=== PATIENT | female | born 1990 | race Hispanic/Latino ===

== ENCOUNTER 2017-06-26 13:35 | Emergency (ER) | payer OTHER ==
[~2017-06-26] VITALS: Ht 152.4 cm; Wt 74.8 kg
--- NOTE | 2017-06-26 15:27 | Diagnostic Imaging Report ---
EXAMINATION: CT of the face HISTORY: Facial trauma, left jaw pain, evaluate for fracture COMPARISON: None available TECHNIQUE: Multidetector helical axial images were acquired through the face without contrast and were reconstructed in bone and soft tissue algorithms. Images were viewed in multiplanar format. FINDINGS: Bones: Acute comminuted and displaced fracture of the left posterior body/angle of the mandible. Nondisplaced complete right parasymphyseal fracture extending to the alveolar ridge in between the right central and lateral incisors. Facial soft tissues: Left greater than right premandibular soft tissue swelling, mild right premaxillary soft tissue swelling. Prominence of the palatine tonsils, likely reactive and within normal limits for age.. Paranasal sinuses and drainage pathways: The frontal, ethmoidal, sphenoid and maxillary sinuses are clear. The ostiomeatal units, fronto-nasal and spheno-ethmoidal recesses are clear. Orbits contents: Unremarkable. Nasal septum: Midline. Anatomic variations: No significant anatomic variations. Dentition: No acute abnormality of the visualized teeth. IMPRESSION: 1. Acute comminuted and displaced left posterior body/angle of the mandible fracture. 2. Acute nondisplaced right parasymphyseal fracture. 3. Bilateral premandibular and right premaxillary soft tissue swelling. Signed by: Dr. Patricia Calero M.D. on 06/26/2017 3:24 PM
[2017-06-26] MEDS ORDERED: HYDROCODONE/APAP 10MG-325MG TAB PO ONE (17:30)
== END 2017-06-26 18:54 | disposition home or self-care (01) ==
LOC: ER 13:35
DX: S02.66XB Fracture of symphysis of mandible, initial encounter for open fracture (principal); S02.652B Fracture of angle of left mandible, initial encounter for open fracture; W50.0XXA Accidental hit or strike by another person, initial encounter; Y04.0XXA Assault by unarmed brawl or fight, initial encounter; Y92.008 Other place in unspecified non-institutional (private) residence as the place of occurrence of the external cause
CPT/HCPCS: 70486; 99284